=== PATIENT | male | born 1995 | race Caucasian/White ===

== ENCOUNTER 2018-07-14 22:10 | Emergency (ER) | payer SELFPAY ==
[~2018-07-14] VITALS: Ht 188 cm; Wt 65.8 kg
[2018-07-14 22:17] VITALS: BP 126/80
--- NOTE | 2018-07-14 22:17 | NUR ---
TO BED # 3 AMBULATORY, REPORT GIVEN TO ARCHIE FORREST
[2018-07-14 22:20] VITALS: BP 126/80
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
--- NOTE | 2018-07-14 23:10 | NUR ---
PATIENT LEFT WITHOUT BEING SEEN BY DR. BELL. NO FURTHER CARE PROVIDED FOR PATIENT.
== END 2018-07-14 23:10 | disposition left against medical advice (07) ==
LOC: MED 22:10
DX: Z53.21 Procedure and treatment not carried out due to patient leaving prior to being seen by health care provider (principal)

== ENCOUNTER 2019-04-15 02:16 | Inpatient (IN) | payer MEDICAID ==
[~2019-04-15] VITALS: Ht 182.9 cm; Wt 61.7 kg
[2019-04-15 02:35] VITALS: BP 115/76
--- NOTE | 2019-04-15 02:35 | NUR ---
TO BED # 11 AMBULATORY
[2019-04-15] MEDS ORDERED: NACL 0.9% 1,000 ML IV ONE (02:56)
[2019-04-15] MEDS ORDERED: ONDANSETRON 4 MG/2 ML VIAL IVP ONE ×2 (03:00→05:05)
[2019-04-15] MEDS ORDERED: PANTOPRAZOLE 40 MG INJ VIAL IVP ONE (03:00)
--- NOTE | 2019-04-15 03:00 | NUR ---
23 YO M BIB SELF WITH FAMILY PRESENTS TO ED C/O 01/13 MID ABD PAIN WITH NVD X 2 DAYS. PT STATES HE VOMITED BLOOD LAST NIGHT. PT STATES THIS ALL STARTED AFTER EATING DINNER X 1 DAY AGO. PT DENIES HX OF ABD ISSUES. -- PT AWAKE, A/O X 4. APPEARS ANXIOUS, UNCOMFORTABLE. ANSWERS QUESTIONS WITHOUT DIFFICULTY. -- SKIN PINK, WARM, DRY. BREATHING EVEN, UNLABORED. -- ABD SOFT, FLAT, NON TENDER. BOWEL SOUNDS PRESENT +4. PMH-- DEPRESSION, ANXIETY RX-- LEXAPRO
--- NOTE | 2019-04-15 03:30 | NUR ---
PT RETCHING, DRY HEAVING IN BED. DR. LEPE AT BEDSIDE.
[2019-04-15 03:39] LABS: BASOPHILS % (AUTO) 0.1 % (0.0-2.0); EOSINOPHILS # (AUTO) 0.1 K/uL (0-0.4); EOSINOPHILS % (AUTO) 0.5 % (0.0-4.0); HEMATOCRIT 49.3 % (36-52); HEMOGLOBIN 16.3 g/dL (12.0-18.0); LYMPHOCYTES # (AUTO) 0.8 K/uL (2.0-11.5); LYMPHOCYTES % (AUTO) 5.3 % (20.5-51.1); MEAN CORPUSCULAR HEMOGLOBIN 30 pg (27-31); MEAN CORPUSCULAR HGB CONC 33 g/dL (33-37); MEAN CORPUSCULAR VOLUME 91.4 fL (80-94); MONOCYTES # (AUTO) 1.4 K/uL (0.8-1.0); MONOCYTES % (AUTO) 8.7 % (1.7-9.3); NEUTROPHILS # (AUTO) 13.4 K/uL (1.8-7.7); PLATELET COUNT (AUTO) 249 K/uL (140-450); WHITE BLOOD COUNT (AUTO) 15.7 K/uL (4.8-10.8)
[2019-04-15 03:52] LABS: ANION GAP 15.4 (8-16); CARBON DIOXIDE 28.7 mmol/L (21-32); CHLORIDE 103 mmol/L (98-107); CREATININE 0.9 mg/dL (0.7-1.3); GFR ARICAN-AMERICAN 137 mL/min (>90); GLUCOSE 119 mg/dL (74-106); POTASSIUM 4.1 mmol/L (3.5-5.1); SODIUM SERUM 143 mmol/L (136-145); UREA NITROGEN, BLOOD 16 mg/dL (7-18)
[2019-04-15 03:56] LABS: PROTHROMBIN TIME 10.8 secs (10.8-13.4)
--- NOTE | 2019-04-15 04:00 | NUR ---
PT MEDICATED WITH PROTONIX AND MORPHINE.
[2019-04-15 04:02] LABS: NEUTROPHILS % (AUTO) 85.4 % (42.2-75.2)
[2019-04-15 04:06] LABS: ALBUMIN 4.9 g/dL (3.4-5.0); ASPARTATE AMINOTRANSFERASE 22 U/L (15-37); LIPASE 168 U/L (73-393); TOTAL BILIRUBIN 1.7 mg/dL (0.0-1.0)
[2019-04-15] MEDS ORDERED: MORPHINE SULFATE 4 MG/ML SYR IVP ONE (05:05)
[2019-04-15] MEDS ORDERED: LEVOFLOXACIN 750 MG/D5W PREMIX 150 ML IV ONE (05:05)
[2019-04-15] MEDS ORDERED: metroNIDAZOLE 500 MG/NS PREMIX 100 ML IV ONE (05:05)
[2019-04-15] MEDS ORDERED: NACL 0.9% 1,000 ML IV SCH (05:09)
[2019-04-15] MEDS ORDERED: MORPHINE SULFATE 2 MG/ML SYR IVP PRN (05:10)
[2019-04-15] MEDS ORDERED: ONDANSETRON 4 MG/2 ML VIAL IM/IVP PRN (05:10)
[2019-04-15] MEDS ORDERED: ACETAMINOPHEN 325 MG TAB PO PRN (05:10)
--- NOTE | 2019-04-15 05:51 | NUR ---
PHLEB AT BEDSIDE DRAWING LABS.
--- NOTE | 2019-04-15 06:00 | NUR ---
FOREST AIDE PERFORMING EKG AT BEDSIDE.
[2019-04-15 06:42] LABS: BILIRUBIN,URINE 1+ (NEGATIVE); BLOOD, URINE NEGATIVE (NEGATIVE); COLOR,URINE YELLOW (YELLOW); LEUKOCYTE ESTERASE ,URINE NEGATIVE (NEGATIVE); NITRITE, URINE NEGATIVE (NEGATIVE); UGLUCOSE NEGATIVE (NEGATIVE)
[2019-04-15 06:54] LABS: APPEARANCE,URINE SLIGHTLY HAZY (CLEAR)
[2019-04-15 06:56] LABS: BARBITURATE, URINE NEG. ng/ml (NEG <=200); BENZODIAZEPINE, URINE NEG. ng/mL (NEG <=200); CANNABINOID, URINE POS. ng/mL (NEG <=50); COCAINE, URINE NEG. ng/mL (NEG <=300); OPIATE, URINE NEG. ng/mL (NEG <=2000); PHENCYCLIDINE SCREEN,URINE NEG. ng/mL (NEG <=25)
[2019-04-15 06:57] LABS: RBC,URINE 0-5 /HPF (0-5)
[2019-04-15 06:58] LABS: WBC,URINE 0-5 /HPF (0-5)
--- NOTE | 2019-04-15 07:20 | NUR ---
Patient will be admitted to care of DR. SANTOS. Admited to MED SURG. Will go to room 125A. Belongings list completed. Report to ADRIANE VILLAR.
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
[2019-04-15] MEDS ORDERED: ESCI10TA PO (07:35)
--- NOTE | 2019-04-15 07:35 | NUR ---
PATIENT VOMIT 200 ML OF LIQUID EMESIS. PATIENT CLEANED UP AND MADE COMFORTABLY. WILL CONTINUE TO MONITOR PATIENT.
[2019-04-15 08:00] VITALS: BP 121/69
--- NOTE | 2019-04-15 10:34 | NUR ---
PRN PAIN MEDICATION GIVEN TO PATIENT FOR C/O OF ABD PAIN. PATIENT TOLERATED IT WELL. ALL NEEDS MET AT THIS TIME. WILL CONTINUE TO MONITOR PATIENT.
[2019-04-15] MEDS ORDERED: PANTOPRAZOLE 40 MG INJ VIAL IVP SCH (10:55)
--- NOTE | 2019-04-15 10:58 | NUR ---
ORDERED MEDICATION GIVEN. PATIENT TOLERATED IT WELL. NO COMPLAINTS AT THIS TIME. CALL LIGHT WITHIN REACH. WILL CONTINUE TO MONITOR PATIENT.
[2019-04-15] MEDS: HYDROcodone/APAP 7.5/325 MG 1 TAB PO PRN ×2 (11:57→17:25)
[2019-04-15 12:00] VITALS: BP 116/62
[2019-04-15 12:26] LABS: CHOL/HDL RATIO 2.1 (1-4.5); FREE T4 (FREE THYROXINE) 1.2 ng/dL (0.76-1.46); MAGNESIUM 1.9 mg/dL (1.8-2.4); PHOSPHORUS 2.9 mg/dL (2.5-4.9); THYROID STIMULATING HORMONE 1.19 uIU/mL (0.34-3.74)
[2019-04-15] MEDS: metroNIDAZOLE 500 MG/NS PREMIX 100 ML IV SCH ×2 (13:18→21:47)
--- NOTE | 2019-04-15 13:18 | NUR ---
ORDERED MEDICATION GIVEN. PATIENT TOLERATED IT WELL. NO COMPLAINTS AT THIS TIME. WILL CONTINUE TO MONITOR PATIENT.
[2019-04-15 16:00] VITALS: BP 114/70
[2019-04-15] MEDS: DEXT 5% /NACL 0.9% 1,000 ML IV SCH (16:39)
--- NOTE | 2019-04-15 16:40 | NUR ---
PATIENT AMBULATED TO THE BATHROOM AND VOID, HAD SMALL BM. OCCULT STOOL SAMPLE OBTAINED AND FORWARD TO LAB. PATIENT'S MOTHER AT BEDSIDE. WILL CONTINUE TO MONITOR PATIENT.
--- NOTE | 2019-04-15 17:20 | NUR ---
PRN PAIN MEDICATION GIVEN TO PATIENT FOR C/O OF ABD PAIN. PATIENT TOLERATED IT WELL. ALL NEEDS MET AT THIS TIME. MOTHER AT BEDSIDE. SPOKE TO DR. ESCOBAR ABOUT ADVANCING DIET. NEW ORDER IN FOR CLEAR LIQUID. PATIENT AWARE. WILL CONTINUE TO MONITOR PATIENT.
--- NOTE | 2019-04-15 19:30 | NUR ---
REPORT GIVEN TO PERSONAL LINES ADVISOR NURSE AT BEDSIDE FOR CONTINUITY OF CARE. PATIENT IN STABLE CONDITION.
--- NOTE | 2019-04-15 19:31 | NUR ---
RECEIVED BEDSIDE REPORT FROM DAY RN. PT IS AAOX4. RESPIRATIONS ARE EQUAL AND UNLABORED IN ROOM AIR. SKIN INTACT. PT IS AMBULATORY. CC N/V PER DAY RN VOMIT X1 DURING ADMISSION HAS NOT COMPLAINED OF NAUSEA. CONSULT WITH DR RICE FOR ABNORMAL EKG. EKG WAS RE-DONE PT TRANSFER TO TELE. TROP NEG X3. CONSULT WITH DR BROWN RECOMMEND EGD PT IS AGREEABLE CONSENT IN CHART. PT TO BE NPO AFTER MIDNIGHT HE VERBALIZED UNDERSTANDING. IV ON LAC 20G D5NS AT 100M/H. POC DISCUSSED WITH PT. CALL LIGHT IS WITHIN REACH. WILL CONTINUE TO MONITOR.
[2019-04-15 20:00] VITALS: BP 108/72
[2019-04-15] MEDS ORDERED: ESCITALOPRAM 20 MG TAB PO SCH (21:00)
--- NOTE | 2019-04-15 21:47 | NUR ---
VITAL SIGNS ARE WITHIN NORMAL LIMITS. OBDULIO MEDICATION GIVEN. PT TOLERATED WELL. CALL LIGHT IS WITHIN REACH.
--- NOTE | 2019-04-15 22:58 | NUR ---
PT IS SLEEPING COMFORTABLY IN BED. CHEST RISE AND FALL. NO S/S OF RESPIRATORY DISTRESS.
[2019-04-16] VITALS: BP 105/70
--- NOTE | 2019-04-16 | NUR ---
VITAL SIGNS ARE WITHIN NORMAL LIMITS. NO S/S OF DISTRESS. CALL LIGHT IS WITHIN REACH.
--- NOTE | 2019-04-16 02:30 | NUR ---
PATIENT IS SLEEPING COMFORTABLY IN BED. CHEST RISE AND FALL. CALL LIGHT IS WITHIN REACH.
[2019-04-16] MEDS: DEXT 5% /NACL 0.9% 1,000 ML IV SCH ×2 (03:07→11:50)
[2019-04-16 04:00] VITALS: BP 111/63
[2019-04-16] MEDS: metroNIDAZOLE 500 MG/NS PREMIX 100 ML IV SCH (04:31)
--- NOTE | 2019-04-16 04:31 | NUR ---
FLAGYL NOW INFUSING PER ORDERS. VITAL SIGNS ARE WITHIN NORMAL LIMITS. NO S/S OF DISTRESS. CALL LIGHT IS WITHIN REACH.
[2019-04-16] MEDS: HYDROcodone/APAP 7.5/325 MG 1 TAB PO PRN ×2 (06:26→10:53)
--- NOTE | 2019-04-16 06:26 | NUR ---
PRN NORCO GIVEN FOR 6/10 ABDOMEN PAIN. CALL LIGHT IS WITHIN REACH. WILL CONTINUE TO MONITOR
--- NOTE | 2019-04-16 07:30 | NUR ---
GAVE BEDSIDE REPORT TO DAY RN. PT ENDORSED IN STABLE CONDITION.
[2019-04-16 07:35] LABS: ANION GAP 9.9 (8-16); CARBON DIOXIDE 30.5 mmol/L (21-32); CREATININE 0.8 mg/dL (0.7-1.3); POTASSIUM 4.4 mmol/L (3.5-5.1)
[2019-04-16 07:36] LABS: BASOPHILS % (AUTO) 0.4 % (0.0-2.0); EOSINOPHILS # (AUTO) 0.1 K/uL (0-0.4); EOSINOPHILS % (AUTO) 2.7 % (0.0-4.0); HEMOGLOBIN 14.1 g/dL (12.0-18.0); LYMPHOCYTES # (AUTO) 1.2 K/uL (2.0-11.5); LYMPHOCYTES % (AUTO) 32.8 % (20.5-51.1); MEAN CORPUSCULAR HEMOGLOBIN 31 pg (27-31); MEAN CORPUSCULAR HGB CONC 34 g/dL (33-37); MEAN CORPUSCULAR VOLUME 91.2 fL (80-94); MONOCYTES # (AUTO) 0.8 K/uL (0.8-1.0); MONOCYTES % (AUTO) 20.1 % (1.7-9.3); NEUTROPHILS # (AUTO) 1.7 K/uL (1.8-7.7); PLATELET COUNT (AUTO) 205 K/uL (140-450); RED CELL DISTRIBUTION WIDTH 13.7 % (11.6-13.7); WHITE BLOOD COUNT (AUTO) 3.8 K/uL (4.8-10.8)
--- NOTE | 2019-04-16 07:45 | NUR ---
RECEIVED BEDSIDE REPORT FROM INJECTION SPECIALIST RN. PT IS AAOX4. RESPIRATIONS ARE EQUAL AND UNLABORED IN ROOM AIR. SKIN INTACT. PT IS AMBULATORY. CC N/V PER DAY RN VOMIT X1 DURING ADMISSION HAS NOT COMPLAINED OF NAUSEA. CONSULT WITH DR RICE FOR ABNORMAL EKG RESULTED IN DR. HALL PT. PT STILL REMAINS ON TELE. TROP NEG X3. IV ON LAC 20G D5NS AT 100M/H. PT TO BE D/C TODAY. POC DISCUSSED WITH PT. CALL LIGHT IS WITHIN REACH. WILL CONTINUE TO MONITOR.
[2019-04-16 08:00] VITALS: BP 107/57
--- NOTE | 2019-04-16 08:24 | NUR ---
PATIENT HAS BEEN SCREENED AND CATEGORIZED HIGH NUTRITION RISK. PATIENT WILL BE SEEN WITHIN 1-2 DAYS OF ADMISSION. 04/16/[address]
[2019-04-16] MEDS ORDERED: ESCITALOPRAM 20 MG TAB PO SCH (09:00)
[2019-04-16] MEDS ORDERED: PANTOPRAZOLE 40 MG INJ VIAL IVP SCH (09:00)
[2019-04-16] MEDS ORDERED: ECOTRIN 81 MG TABEC PO SCH (09:00)
--- NOTE | 2019-04-16 09:24 | NUR ---
ADMINISTERED MORNING MEDS TO PT. PT TOLERATED MEDS WELL. ALL NEEDS CURRENTLY MET. WILL CONTINUE TO ROUND ON PT.
--- NOTE | 2019-04-16 11:42 | NUR ---
PT SLEEPING IN BED. ALL NEEDS MET. WILL CONTINUE TO ROUND ON PT.
[2019-04-16 12:00] VITALS: BP 108/62
--- NOTE | 2019-04-16 13:22 | NUR ---
Milling Machinist Note: Basic Screen: Yes High Risk DC Screen Vega: NATANAEL Page Relationship: MOTHER Pre-Admission Living Arrangements: Lives with Other Prior ADL Independent Current Home Health Name/Tel: N/A Current DME/02 Name/Tel: N/A Current Hospice Name/Tel: N/A Current Dialysis Name/Tel: N/A Healthcare Decision Maker: Patient Advance Directive No - REFUSED Physician Orders for Life Sustaining Treatment Form No Patient/Family Have Educational Needs No Information Taught: Advance Directive Community Resources Person Taught: Patient Teaching Tools: Community Resources Verbal Factors Affecting Learning: None Participation Level: Active Evaluation: Verbalizes Understanding Needs Additional Education: No Discipline: Case Mgt/Social Svcs Tentative Discharge Plan/Destination: No Needs Identified Will require assistance post discharge: No Referred to Washer Blanket: No Tentative Discharge Plan Summary: Patient is a 23 year old male who was admitted for nausea and vomiting. Patient has past medical history of depression. Patient was admitted from home. Patient states that he has no PCP and cannot recall when the last time he was seen by a PCP. SW verified demographics with patient. Patient stated that he was just released from a psychiatric facility where he was placed on a 5150 hold. Patient stated that he has a follow up at [facility] for mental health services next week. Patient stated he has a mental health history of depression and is medication compliant. Patient denied SI/HI. Patient stated that he drinks 3 beers a week and smokes 7 grams of marijuana daily. Patient stated he has since stopped smoking marijuana since psychiatric hospitalization. SW provided patient substance abuse resources, but patient refused. SW also provided education for advanced directive. Patient refused. Patient's tentative plan after discharge is to follow up with his mental health services at [facility] after discharge. No further needs were identified. Signature: RICO Mckinnon Date: Apr 16, 2019 Time: 13:21
--- NOTE | 2019-04-16 13:24 | NUR ---
PT RESTING IN BED. ALL NEEDS MET. WILL CONTINUE TO ROUND FREQUENTLY ON PT. BED IN LOW POSITION, CALL LIGHT WITHIN REACH.
[2019-04-16] MEDS ORDERED: METR250T2 PO (13:28)
[2019-04-16] MEDS ORDERED: FAMO-90 PO (13:28)
--- NOTE | 2019-04-16 14:15 | NUR ---
PT DISCHARGED HOME FOR SELF CARE. PT SIGNED ALL DISCHARGE PAPERWORK. PT VERBALIZED UNDERSTANDING OF TEACHING. ALL PERSONAL BELONGINGS TAKEN WITH PT. PT IV REMOVED WITH TIP INTACT. WRIST BANDS REMOVED AND PLACED IN SHRED BIN. PT MEDICATION PICKED UP FROM PHARMACY AND HANDED TO PT ON DC. PT AWARE OF FOLLOW-UP APPT MADE FOR HIM BY RESIDENT . PT LEFT IN STABLE CONDITION ACCOMPANIED BY HIS MOM.
== END 2019-04-16 14:15 | disposition home or self-care (01) | DRG 249 ==
LOC: MED 02:16 → MMU 05:11
PROVIDERS: ADMIT General Practice; ATTEND General Practice
DX: K52.9 Noninfective gastroenteritis and colitis, unspecified (principal); E83.59 Other disorders of calcium metabolism; D72.819 Decreased white blood cell count, unspecified; E86.0 Dehydration; N29 Other disorders of kidney and ureter in diseases classified elsewhere; F32.9 Major depressive disorder, single episode, unspecified; R94.31 Abnormal electrocardiogram [ECG] [EKG]; F12.10 Cannabis abuse, uncomplicated; E80.6 Other disorders of bilirubin metabolism
CPT/HCPCS: 36415; 71045; 76700; 80048; 80053; 80305; 81001; 82140; 82272; 82550; 83036; 83605; 83690; 83735; 83880; 84100; 84439; 84443; 84484; 85025; 85610; 85730; 86886; 86900; 86901; 87040; 87081; 87804; 93005; 96361; 96365; 96375; 96376; 99285; C9113; G0482; J1644; J1956; J2270; J2405; J3490; J7030; J7042; Q0092

== ENCOUNTER 2019-07-15 18:18 | Emergency (ER) | payer MEDICAID, OTHER ==
[~2019-07-15] VITALS: Ht 175.3 cm; Wt 68.0 kg
[~2019-07-15 18:18] MED LIST: ESCI10TA PO; FAMO-90 PO; METR250T2 PO
[2019-07-15 18:19] VITALS: BP 149/88
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
[2019-07-15] MEDS ORDERED: NACL 0.9% 1,000 ML IV ONE (18:25)
--- NOTE | 2019-07-15 19:05 | NUR ---
REPORT GIVEN TO KAREN FOR CONTINUITY OF CARE
--- NOTE | 2019-07-15 19:06 | NUR ---
BEDSIDE REPORT RECEIVED FROM ADRIANE DE LA TORRE. TRANSFER OF CARE AT THIS TIME.
--- NOTE | 2019-07-15 19:15 | NUR ---
RESTING IN BED WITH EYES CLOSED. AROUSABLE TO VERBAL STIMULI. VSS. SLURRED SPEECH, ETOH ODOR NOTED.
--- NOTE | 2019-07-15 20:12 | NUR ---
Dr. Johnson examining patient.
--- NOTE | 2019-07-15 20:26 | NUR ---
PHLEB AT BEDSIDE FOR BLOOD DRAW.
[2019-07-15 20:43] LABS: BASOPHILS % (AUTO) 0.3 % (0.0-2.0); EOSINOPHILS # (AUTO) 0.1 K/uL (0-0.4); EOSINOPHILS % (AUTO) 0.5 % (0.0-4.0); HEMATOCRIT 48.2 % (36-52); HEMOGLOBIN 15.9 g/dL (12.0-18.0); LYMPHOCYTES # (AUTO) 1.8 K/uL (2.0-11.5); LYMPHOCYTES % (AUTO) 15.7 % (20.5-51.1); MEAN CORPUSCULAR HEMOGLOBIN 30 pg (27-31); MEAN CORPUSCULAR HGB CONC 33 g/dL (33-37); MEAN CORPUSCULAR VOLUME 91.6 fL (80-94); MONOCYTES # (AUTO) 0.5 K/uL (0.8-1.0); MONOCYTES % (AUTO) 4.6 % (1.7-9.3); NEUTROPHILS # (AUTO) 8.9 K/uL (1.8-7.7); NEUTROPHILS % (AUTO) 78.9 % (42.2-75.2); PLATELET COUNT (AUTO) 327 K/uL (140-450); RED BLOOD CELL COUNT(AUTO) 5.26 MIL/uL (4.20-6.10); RED CELL DISTRIBUTION WIDTH 14.4 % (11.6-13.7); WHITE BLOOD COUNT (AUTO) 11.3 K/uL (4.8-10.8)
[2019-07-15 20:56] LABS: ALBUMIN 4.7 g/dL (3.4-5.0); ANION GAP 15.9 (8-16); ASPARTATE AMINOTRANSFERASE 15 U/L (15-37); CARBON DIOXIDE 26.4 mmol/L (21-32); CHLORIDE 106 mmol/L (98-107); CREATININE 0.8 mg/dL (0.6-1.3); GFR ARICAN-AMERICAN 157 mL/min (>90); GLUCOSE 90 mg/dL (74-106); POTASSIUM 4.3 mmol/L (3.5-5.1); SODIUM SERUM 144 mmol/L (136-145); TOTAL BILIRUBIN 1.6 mg/dL (0.0-1.0); UREA NITROGEN, BLOOD 10 mg/dL (7-18)
[2019-07-15 20:57] LABS: APPEARANCE,URINE CLEAR (CLEAR); BILIRUBIN,URINE NEGATIVE (NEGATIVE); BLOOD, URINE NEGATIVE (NEGATIVE); COLOR,URINE YELLOW (YELLOW); LEUKOCYTE ESTERASE ,URINE NEGATIVE (NEGATIVE); NITRITE, URINE NEGATIVE (NEGATIVE); UGLUCOSE NEGATIVE (NEGATIVE)
[2019-07-15 21:01] LABS: ACETAMINOPHEN < 0.5 ug/ml (10-30); SALICYLATE < 2.8 mg/dL (2.8-20.0)
[2019-07-15 21:08] LABS: BARBITURATE, URINE NEG. ng/ml (NEG <=200); BENZODIAZEPINE, URINE NEG. ng/mL (NEG <=200); CANNABINOID, URINE POS. ng/mL (NEG <=50); COCAINE, URINE NEG. ng/mL (NEG <=300); OPIATE, URINE NEG. ng/mL (NEG <=2000); PHENCYCLIDINE SCREEN,URINE NEG. ng/mL (NEG <=25)
--- NOTE | 2019-07-15 21:36 | NUR ---
Dr. Johnson with patient.
[2019-07-15 22:00] VITALS: BP 113/60
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
== END 2019-07-15 22:00 | disposition home or self-care (01) ==
LOC: MED 18:18
DX: F10.120 Alcohol abuse with intoxication, uncomplicated (principal); Y90.9 Presence of alcohol in blood, level not specified; F32.9 Major depressive disorder, single episode, unspecified; Z79.899 Other long term (current) drug therapy
CPT/HCPCS: 36415; 80053; 80305; 81003; 85025; 99283; G0480; G0482; J7030

== ENCOUNTER 2019-09-22 11:11 | Emergency (ER) | payer OTHER ==
[~2019-09-22] VITALS: Ht 188 cm; Wt 71.7 kg
--- NOTE | 2019-09-22 11:14 | NUR ---
PT TO ER BED 7
[2019-09-22 11:19] VITALS: BP 137/95
--- NOTE | 2019-09-22 11:30 | NUR ---
DR CANAS AT BEDSIDE EVALUATING PT.
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
[2019-09-22] MEDS ORDERED: MORPHINE SULFATE 4 MG/ML SYR IM ONE (11:35)
--- NOTE | 2019-09-22 11:47 | NUR ---
PIYUSH RUSS AT BEDSIDE DOING WOUND CLEANING.
--- NOTE | 2019-09-22 12:00 | NUR ---
XRAY AT BEDSIDE.
--- NOTE | 2019-09-22 12:30 | NUR ---
DR CANAS AT BEDSIDE REEVALUATING PT.
[2019-09-22] MEDS ORDERED: LIDOCAINE 2% 1000 MG/50 ML VIAL INJ ONE (12:35)
--- NOTE | 2019-09-22 13:09 | NUR ---
ERMD DR CANAS AT BEDSIDE IM MEDS-GIVE,-NADR AT THIS TIME
--- NOTE | 2019-09-22 13:12 | NUR ---
PT IN SITTING POSITION PREP FOR SUTURING. PT AWAKE , ALERT, AFIBRILE PAIN AT 0/10 ON RT FINGERS.
--- NOTE | 2019-09-22 13:23 | NUR ---
DR CANAS AT BEDSIDE SUTURING PT FINGER.
[2019-09-22] MEDS ORDERED: CEPHALEXIN 500 MG CAP PO ONE (13:40)
[2019-09-22] MEDS ORDERED: BACITRACIN OINT 500 UNITS/GM PKT TP ONE (13:41)
[2019-09-22 14:00] VITALS: BP 137/89
--- NOTE | 2019-09-22 14:00 | NUR ---
Patient discharged with v/s stable. Written and verbal after care instructions given and explained regarding fructure bone . Patient alert, oriented and verbalized understanding of instructions. Ambulatory with steady gait. All questions addressed prior to discharge. ID band removed. Patient advised to follow up with PMD. Rx of keflex and ibuprofen given. Patient educated on indication of medication including possible reaction and side effects. Opportunity to ask questions provided and answered.
== END 2019-09-22 14:00 | disposition home or self-care (01) ==
LOC: MED 11:42
DX: S62.604B Fracture of unspecified phalanx of right ring finger, initial encounter for open fracture (principal); X58.XXXA Exposure to other specified factors, initial encounter; F41.9 Anxiety disorder, unspecified; Z79.899 Other long term (current) drug therapy; Y93.89 Activity, other specified; Y92.89 Other specified places as the place of occurrence of the external cause; Y99.8 Other external cause status
CPT/HCPCS: 12002; 73130; 90471; 90715; 96372; 99284; J2001; J2270; 12001

== ENCOUNTER 2019-10-02 12:22 | Emergency (ER) | payer OTHER ==
[~2019-10-02] VITALS: Ht 185.4 cm; Wt 68.0 kg
--- NOTE | 2019-10-02 12:28 | NUR ---
Patient ambulated to chair D. RN evaluating patient.
[2019-10-02 12:29] VITALS: BP 118/69
--- NOTE | 2019-10-02 12:36 | NUR ---
24 Y/O MALE FROM HOME PRESENTS TO ER FOR SUTURE REMOVAL TO THE RT RING FINGER. PT STATES SUTURES PLACED 10 DAYS AGO AT [facility]. DENIES PAIN. +CMS. BRUISING NOTED TO RT RING FINGER NAIL. SITTING IN CHD CALM AND PLEASANT. MEDHX: DENIES ALLERGIES: NKA
--- NOTE | 2019-10-02 12:47 | NUR ---
DR REID EXAMINING PT
--- NOTE | 2019-10-02 13:17 | NUR ---
Dr. Ramos removing sutures.
--- NOTE | 2019-10-02 13:26 | NUR ---
non adherent dressing placed over pt wound on r 4th digint, wrapped with coflex
--- NOTE | 2019-10-02 13:29 | NUR ---
SUTURES REMOVED FROM PTS RT RING FINGER BY DR REID. PT TOLERATED WELL
[2019-10-02 13:42] VITALS: BP 118/69
--- NOTE | 2019-10-02 13:43 | NUR ---
+PULSES, +CMS AFTER PLACING WRAP ON RT RING FINGER.
--- NOTE | 2019-10-02 13:43 | NUR ---
Patient discharged with v/s stable. Written and verbal after care instructions given and explained. Patient alert, oriented and verbalized understanding of instructions. Ambulatory with steady gait. All questions addressed prior to discharge. ID band removed. Patient advised to follow up with PMD. Opportunity to ask questions provided and answered.
== END 2019-10-02 13:43 | disposition home or self-care (01) ==
LOC: MED 12:22
DX: S61.214D Laceration without foreign body of right ring finger without damage to nail, subsequent encounter (principal); X58.XXXD Exposure to other specified factors, subsequent encounter; Z48.02 Encounter for removal of sutures; Z79.899 Other long term (current) drug therapy; Y93.89 Activity, other specified; Y92.89 Other specified places as the place of occurrence of the external cause; Y99.8 Other external cause status
CPT/HCPCS: 99281

== ENCOUNTER 2020-01-21 22:19 | Emergency (ER) | payer OTHER ==
[~2020-01-21] VITALS: Ht 185.4 cm; Wt 65.8 kg
--- NOTE | 2020-01-21 22:28 | NUR ---
[place] [employer] AT BEDSIDE
--- NOTE | 2020-01-21 22:28 | NUR ---
PT ENRIQUE ALS. TAKEN TO BED 9
[2020-01-21 22:32] VITALS: BP 142/85
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
--- NOTE | 2020-01-21 22:46 | NUR ---
Dr. Johnson examining patient.
--- NOTE | 2020-01-21 22:46 | NUR ---
C COLLAR REMOVED BY JOEL BELL.
[2020-01-21] MEDS ORDERED: MORPHINE SULFATE 4 MG/ML SYR IM ONE (22:50)
--- NOTE | 2020-01-22 00:25 | NUR ---
PATIENT ELOPED FROM FACILITY. DISCHARGE INSTRUCTIONS NOT GIVEN TO PATIENT. DR. BELL NOTIFIED.
[2020-01-22 00:26] VITALS: BP 142/85
--- NOTE | 2020-01-22 02:06 | NUR ---
PT RETURNED FOR D/C INSTRUCTIONS AND RESULTS. DR BELL AWARE. Patient discharged with v/s stable. Written and verbal after care instructions given and explained. Patient alert, oriented and verbalized understanding of instructions. Ambulatory with steady gait. All questions addressed prior to discharge. ID band removed. Patient advised to follow up with PMD. Rx of MOTRIN, NORCO given. Patient educated on indication of medication including possible reaction and side effects. Opportunity to ask questions provided and answered. COPY OF RADIOLOGY RESULTS GIVEN.
== END 2020-01-22 02:06 | disposition home or self-care (01) ==
LOC: MED 22:19
DX: S00.81XA Abrasion of other part of head, initial encounter (principal); M54.6 Pain in thoracic spine; M54.2 Cervicalgia; H53.8 Other visual disturbances; Z79.899 Other long term (current) drug therapy; Y08.09XA Assault by strike by other specified type of sport equipment, initial encounter; Y93.89 Activity, other specified; Y92.89 Other specified places as the place of occurrence of the external cause; Y99.8 Other external cause status
CPT/HCPCS: 70450; 70486; 71250; 96372; 99285; J2270

== ENCOUNTER 2021-04-14 12:18 | Emergency (ER) | payer OTHER ==
[~2021-04-14] VITALS: Ht 185.4 cm; Wt 74.4 kg
[~2021-04-14 12:18] MED LIST changes: +METR-520 PO; -METR250T2 PO
[2021-04-14 12:23] VITALS: BP 143/77
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
--- NOTE | 2021-04-14 12:45 | NUR ---
ERMD at bedside to assess pt
--- NOTE | 2021-04-14 13:06 | NUR ---
ERMD AT BEDSIDE TO CLOSE WOUNDS WITH SUPPLIES AT BEDSIDE.
[2021-04-14 13:39] VITALS: BP 133/74
--- NOTE | 2021-04-14 13:39 | NUR ---
Patient discharged with v/s stable. Written and verbal after care instructions given and explained. Patient verbalized understanding. Ambulatory with steady gait. All questions addressed prior to discharge. Advised to follow up with PMD.
== END 2021-04-14 13:39 | disposition home or self-care (01) ==
LOC: MED 12:18
DX: S21.102A Unspecified open wound of left front wall of thorax without penetration into thoracic cavity, initial encounter (principal); S31.000A Unspecified open wound of lower back and pelvis without penetration into retroperitoneum, initial encounter; S41.002A Unspecified open wound of left shoulder, initial encounter; S61.402A Unspecified open wound of left hand, initial encounter; F17.200 Nicotine dependence, unspecified, uncomplicated; F32.9 Major depressive disorder, single episode, unspecified; F41.9 Anxiety disorder, unspecified; Z79.899 Other long term (current) drug therapy; X58.XXXA Exposure to other specified factors, initial encounter; Y93.89 Activity, other specified; Y92.89 Other specified places as the place of occurrence of the external cause; Y99.8 Other external cause status
CPT/HCPCS: 99281

== ENCOUNTER 2021-04-24 12:52 | Emergency (ER) | payer OTHER ==
[~2021-04-24] VITALS: Ht 188 cm; Wt 76.2 kg
[2021-04-24 13:52] VITALS: BP 135/77
[2021-04-24] MEDS ORDERED: CEPH500C16 PO (15:51)
[2021-04-24 16:01] VITALS: BP 135/77
--- NOTE | 2021-04-24 16:02 | NUR ---
Pt assessed and discharged by XAVIER Ozuna.
== END 2021-04-24 16:03 | disposition home or self-care (01) ==
LOC: MED 12:52
DX: S21.112D Laceration without foreign body of left front wall of thorax without penetration into thoracic cavity, subsequent encounter (principal); Z79.899 Other long term (current) drug therapy; X58.XXXD Exposure to other specified factors, subsequent encounter
CPT/HCPCS: 99283

== ENCOUNTER 2022-02-23 19:01 | Emergency (ER) | payer OTHER ==
[~2022-02-23 19:01] MED LIST changes: +CEPH500C16 PO
--- NOTE | 2022-02-23 19:24 | NUR ---
Be johnson in EDM - 02/23/22 at 1929 by [email or web address] 38 Y/O FEMALE BIBA FROM HOME C/O LOWER BACK PAIN X2 WEEKS, WORSENING OVER LAST 4-5 DAYS. PT TYLENOL THIS AM WITHOUT RELIEF PMH:SCIATICA, EPILPSY MEDS:TAB
--- NOTE | 2022-02-23 19:24 | NUR ---
DR CARRILLO ATTEMPTED TO BRING PT BACK. PATIENT LEFT WITHOUT BEING SEEN BY DR. BOND. NO FURTHER CARE PROVIDED FOR PATIENT.
== END 2022-02-23 19:24 | disposition left against medical advice (07) ==
LOC: MED 19:01
DX: R10.9 Unspecified abdominal pain (principal); Z53.21 Procedure and treatment not carried out due to patient leaving prior to being seen by health care provider

== ENCOUNTER 2023-08-17 20:25 | Emergency (ER) | payer OTHER ==
[~2023-08-17] VITALS: Ht 185.4 cm; Wt 81.6 kg
[2023-08-17 21:00] VITALS: BP 142/78; PULSE 130; RESP 17; TEMP 98.3; O2SAT 97
[2023-08-17 22:07] VITALS: BP 128/82; PULSE 113; RESP 17; TEMP 98.3; O2SAT 98
== END 2023-08-17 22:07 ==
LOC: MED 20:25
CPT/HCPCS: 93005; 99283